=== PATIENT | female | born 1950 | race Caucasian/White ===

== ENCOUNTER 2016-04-25 23:40 | Emergency (ER) | payer MEDICARE ==
[~2016-04-25 23:40] MED LIST: CEFT5 PO; ESTRADIOL2 MG PO; FLORASTOR250 MG PO; GENPRIL200 MG PO; LEVAQUIN750 MG PO; MAX25 PO; ULTRAM50 PO; ZOL100 PO
== END 2016-04-26 01:21 | disposition home or self-care (01) ==
LOC: ER 23:40
PROC: 2W3PX1Z Immobilization of Left Upper Leg using Splint (ICD-10-PCS; principal; 2016-04-25)
DX: S86.912A Strain of unspecified muscle(s) and tendon(s) at lower leg level, left leg, initial encounter (principal); X58.XXXA Exposure to other specified factors, initial encounter; F17.200 Nicotine dependence, unspecified, uncomplicated; I10 Essential (primary) hypertension; Z88.2 Allergy status to sulfonamides; Z91.040 Latex allergy status; Z79.899 Other long term (current) drug therapy
CPT/HCPCS: 73560-LT; 99283; A9270-GY